=== PATIENT | male | born 1950 | race Caucasian/White ===

== ENCOUNTER 2023-04-30 16:59 | Emergency (ER) | payer OTHER ==
[~2023-04-30] VITALS: Ht 175.3 cm; Wt 97.1 kg
[2023-04-30 18:46] LABS: BASOPHILS % (AUTO) 0.1 % (0.0-5.0); EOSINOPHILS % (AUTO) 1.1 % (0.0-8.0); HEMATOCRIT 32.8 % (42-54); LYMPHOCYTES % (AUTO) 23.8 % (21.0-51.0); MEAN CORPUSCULAR HEMOGLOBIN 29.6 pg (27.0-33.0); MEAN CORPUSCULAR HGB CONC 33.5 g/dL (32.0-36.0); MEAN CORPUSCULAR VOLUME 88.4 fL (79-99); MONOCYTES % (AUTO) 7.2 % (3.0-13.0); NEUTROPHILS % (AUTO) 67.6 % (40.0-77.0); PLATELET COUNT (AUTO) 190 K/uL (130-400); RED BLOOD CELL COUNT(AUTO) 3.71 MIL/uL (4.50-6.20); RED CELL DISTRIBUTION WIDTH 14.2 % (11.0-15.5); WHITE BLOOD COUNT (AUTO) 9.4 K/uL (4.8-10.8)
[2023-04-30 18:59] LABS: INR 1.07 (0.85-1.15); PROTHROMBIN TIME 11.6 SEC (9.6-11.6)
[2023-04-30 19:00] LABS: CREATININE 1.2 mg/dL (0.5-1.5); POTASSIUM 4.6 mmol/L (3.5-5.1)
[2023-04-30 19:04] LABS: ALBUMIN 3.6 g/dL (3.5-5.0); MAGNESIUM 1.2 mg/dL (1.80-2.40); TOTAL PROTEIN, SERUM 7.2 g/dL (6.0-8.3)
[2023-04-30 19:10] LABS: B-TYPE NATRIURETIC PEPTIDE 90 pg/mL (0-100)
[2023-04-30] MEDS ORDERED: MAGNESIUM OXIDE 400 MG TABLET PO SCH (20:00)
[2023-04-30 20:16] VITALS: BP 133/60
== END 2023-04-30 21:55 | disposition home or self-care (01) ==
LOC: EDH 16:59
DX: E83.42 Hypomagnesemia (principal); I48.91 Unspecified atrial fibrillation; E11.9 Type 2 diabetes mellitus without complications; E78.00 Pure hypercholesterolemia, unspecified; I10 Essential (primary) hypertension
CPT/HCPCS: 36415; 71045; 80053; 83735; 83880; 84484; 85025; 85610; 93005

== ENCOUNTER 2023-06-22 08:29 | Emergency (ER) | payer OTHER, MEDICARE ==
[~2023-06-22] VITALS: Ht 175.3 cm; Wt 93.0 kg
[2023-06-22 09:26] LABS: BASOPHILS % (AUTO) 0.2 % (0.0-5.0); EOSINOPHILS % (AUTO) 0.5 % (0.0-8.0); HEMATOCRIT 32.8 % (42-54); LYMPHOCYTES % (AUTO) 6.6 % (21.0-51.0); MEAN CORPUSCULAR HEMOGLOBIN 33.1 pg (27.0-33.0); MEAN CORPUSCULAR HGB CONC 35.4 g/dL (32.0-36.0); MEAN CORPUSCULAR VOLUME 93.7 fL (79-99); MONOCYTES % (AUTO) 7.4 % (3.0-13.0); NEUTROPHILS % (AUTO) 84.6 % (40.0-77.0); PLATELET COUNT (AUTO) 223 K/uL (130-400); RED CELL DISTRIBUTION WIDTH 14.6 % (11.0-15.5); WHITE BLOOD COUNT (AUTO) 16.1 K/uL (4.8-10.8)
[2023-06-22 09:33] LABS: CREATININE 1.4 mg/dL (0.5-1.5); POTASSIUM 4.3 mmol/L (3.5-5.1)
[2023-06-22 09:37] LABS: ALBUMIN 3.1 g/dL (3.5-5.0); TOTAL PROTEIN, SERUM 7.9 g/dL (6.0-8.3)
[2023-06-22 10:39] LABS: APPEARANCE,URINE CLEAR (CLEAR); BILIRUBIN,URINE NEGATIVE (NEGATIVE); COLOR,URINE LIGHT-YELLOW (YELLOW); GLUCOSE, URINE (UA) NEGATIVE (NEGATIVE); KETONES,URINE NEGATIVE (NEGATIVE); LEUKOCYTE ESTERASE ,URINE 25 Leu/uL (NEGATIVE); NITRATE,URINE NEGATIVE (NEGATIVE); OCCULT BLOOD,URINE SMALL (NEGATIVE); PROTEIN,URINE 10 mg/dL (NEGATIVE); UROBILINOGEN,URINE 0.2 mg/dL (0.2-1.0)
[2023-06-22] MEDS ORDERED: ALBUTEROL 0.083% 2.5 MG/3 ML INH IH ONE (11:00)
[2023-06-22] MEDS ORDERED: GUAIFENESIN 600 MG TABLET.ER PO ONE (11:00)
[2023-06-22 11:13] LABS: MUCUS,URINE RARE LPF (None Seen); SQUAMOUS EPITHELIAL CELL,UR RARE /HPF (0-2)
[2023-06-22 12:20] VITALS: PULSE 77; RESP 18
[2023-06-22 12:31] VITALS: PULSE 79; RESP 18
[2023-06-22 12:40] VITALS: PULSE 75; RESP 18
[2023-06-22] MEDS ORDERED: GUAI600T50 PO (12:41)
[2023-06-22] MEDS ORDERED: AUD IH (12:41)
[2023-06-22] MEDS ORDERED: CEPH500B PO (12:41)
[2023-06-22 13:10] VITALS: BP 126/72; PULSE 72; RESP 18; O2SAT 98
[2023-06-26] MEDS ORDERED: XALA2.5OS OU (20:48)
[2023-06-26] MEDS ORDERED: PANT40TA54 PO (20:48)
[2023-06-26] MEDS ORDERED: NETA2.5D OD (20:48)
[2023-06-26] MEDS ORDERED: HYDR25TA PO (20:48)
[2023-06-26] MEDS ORDERED: FISH1CAP20 PO (20:48)
[2023-06-26] MEDS ORDERED: ALOG25TA2 PO (20:48)
[2023-06-26] MEDS ORDERED: ASPI-1197 PO (20:48)
[2023-06-26] MEDS ORDERED: FERS325 PO (20:48)
[2023-06-26] MEDS ORDERED: CYAN100099 PO (20:48)
[2023-06-26] MEDS ORDERED: LOSA50TA64 PO (20:48)
[2023-06-26] MEDS ORDERED: DORZ10DR10 OU (20:48)
[2023-06-26] MEDS ORDERED: ATOR40TA69 PO (20:48)
[2023-06-26] MEDS ORDERED: lidocaine 5% TP (20:48)
[2023-06-26] MEDS ORDERED: OXYB5TAB15 PO (20:48)
[2023-06-26] MEDS ORDERED: METF-446 PO (20:48)
[2023-06-26] MEDS ORDERED: diclofenac gel TP (20:48)
[2023-06-26] MEDS ORDERED: SOTA80TA PO (20:48)
== END 2023-06-22 13:24 | disposition home or self-care (01) ==
LOC: EDH 08:29
DX: J40 Bronchitis, not specified as acute or chronic (principal); N39.0 Urinary tract infection, site not specified; E11.9 Type 2 diabetes mellitus without complications; Z20.822 Contact with and (suspected) exposure to COVID-19
CPT/HCPCS: 99284; 71045; 87635; 80053; 85025; 87088; 87880; 87804 ×2; 81001; 36415; 94640 ×3; C9803

== ENCOUNTER 2023-06-24 10:17 | Emergency (ER) | payer MEDICARE, OTHER ==
[~2023-06-24] VITALS: Ht 175.3 cm; Wt 93.0 kg
[~2023-06-24 10:17] MED LIST: AUD IH; CEPH500B PO; GUAI600T50 PO
[2023-06-24 12:50] LABS: BASOPHILS # (AUTO) 0.02 K/uL (0.00-0.20); BASOPHILS % (AUTO) 0.2 % (0.0-5.0); EOSINOPHILS # (AUTO) 0.03 K/uL (0.00-0.70); EOSINOPHILS % (AUTO) 0.2 % (0.0-8.0); HEMATOCRIT 31.6 % (42-54); IMMATURE GRANULOCYTE ABSOLUTE 0.06 K/uL (0-1); LYMPHOCYTES # (AUTO) 1.4 K/uL (1.0-4.8); LYMPHOCYTES % (AUTO) 11.7 % (21.0-51.0); MEAN CORPUSCULAR HEMOGLOBIN 31.4 pg (27.0-33.0); MEAN CORPUSCULAR HGB CONC 35.4 g/dL (32.0-36.0); MEAN CORPUSCULAR VOLUME 88.5 fL (79-99); MONOCYTES % (AUTO) 8.4 % (3.0-13.0); NEUTROPHILS # (AUTO) 9.6 K/uL (1.8-7.7); PLATELET COUNT (AUTO) 250 K/uL (130-400); RED BLOOD CELL COUNT(AUTO) 3.57 MIL/uL (4.50-6.20); RED CELL DISTRIBUTION WIDTH 13.1 % (11.0-15.5); WHITE BLOOD COUNT (AUTO) 12.2 K/uL (4.8-10.8)
[2023-06-24 13:05] LABS: CREATININE 1.2 mg/dL (0.5-1.5); POTASSIUM 3.3 mmol/L (3.5-5.1)
[2023-06-24 13:10] LABS: ALBUMIN 2.9 g/dL (3.5-5.0); BILIRUBIN,TOTAL 0.6 mg/dL (0.2-1.0); TOTAL PROTEIN, SERUM 7.8 g/dL (6.0-8.3)
[2023-06-24 13:18] LABS: B-TYPE NATRIURETIC PEPTIDE 141 pg/mL (0-100)
[2023-06-24 15:03] VITALS: BP 121/65; PULSE 78; RESP 18; O2SAT 99
[2023-06-24] MEDS ORDERED: AZIT250T9 PO (15:11)
[2023-06-24] MEDS ORDERED: AMOX1TAB16 PO (15:11)
[2023-06-24] MEDS ORDERED: KCL 20 MEQ ERTAB PO ONE ×2 (15:22→15:30)
[2023-06-24] MEDS ORDERED: AZITHROMYCIN 250 MG TABLET PO ONE (15:30)
[2023-06-24] MEDS ORDERED: AMOX/CLAV 875/125MG TAB PO ONE (15:30)
== END 2023-06-24 15:32 | disposition home or self-care (01) ==
LOC: EDH 10:17
DX: J18.9 Pneumonia, unspecified organism (principal); E87.1 Hypo-osmolality and hyponatremia; E87.6 Hypokalemia; E11.9 Type 2 diabetes mellitus without complications; E78.00 Pure hypercholesterolemia, unspecified; Z90.49 Acquired absence of other specified parts of digestive tract
CPT/HCPCS: 36415; 71045; 80053; 83880; 85025

== ENCOUNTER 2023-06-25 17:06 | Inpatient (IN) | payer MEDICARE, OTHER ==
[~2023-06-25] VITALS: Ht 396.2 cm; Wt 90.4 kg
[~2023-06-25 17:06] MED LIST changes: +AMOX1TAB16 PO; +AZIT250T9 PO
[2023-06-25 17:59] LABS: BASOPHILS # (AUTO) 0.03 K/uL (0.00-0.20); BASOPHILS % (AUTO) 0.2 % (0.0-5.0); EOSINOPHILS # (AUTO) 0.22 K/uL (0.00-0.70); EOSINOPHILS % (AUTO) 1.7 % (0.0-8.0); HEMATOCRIT 31.7 % (42-54); IMMATURE GRANULOCYTE ABSOLUTE 0.06 K/uL (0-1); LYMPHOCYTES # (AUTO) 1.5 K/uL (1.0-4.8); LYMPHOCYTES % (AUTO) 11.6 % (21.0-51.0); MEAN CORPUSCULAR HEMOGLOBIN 30.6 pg (27.0-33.0); MEAN CORPUSCULAR HGB CONC 35.3 g/dL (32.0-36.0); MEAN CORPUSCULAR VOLUME 86.6 fL (79-99); MONOCYTES # (AUTO) 1.3 K/uL (0.1-1.0); MONOCYTES % (AUTO) 10.1 % (3.0-13.0); NEUTROPHILS # (AUTO) 9.8 K/uL (1.8-7.7); NEUTROPHILS % (AUTO) 75.9 % (40.0-77.0); PLATELET COUNT (AUTO) 289 K/uL (130-400); RED BLOOD CELL COUNT(AUTO) 3.66 MIL/uL (4.50-6.20); WHITE BLOOD COUNT (AUTO) 12.9 K/uL (4.8-10.8)
[2023-06-25 18:25] LABS: ALBUMIN 2.8 g/dL (3.5-5.0); BILIRUBIN,TOTAL 0.4 mg/dL (0.2-1.0); CREATININE 1.2 mg/dL (0.5-1.5); POTASSIUM 3.5 mmol/L (3.5-5.1); TOTAL PROTEIN, SERUM 7.9 g/dL (6.0-8.3)
[2023-06-25] MEDS ORDERED: CEFTRIAXONE 1G VIAL IVPB ONE (19:30)
[2023-06-25] MEDS ORDERED: AZITHROMYCIN 500MG+NS 250ML IVPB SCH (19:30)
[2023-06-25] MEDS ORDERED: ONDANSETRON 4MG INJ IV PRN (21:00)
[2023-06-25] MEDS ORDERED: ACETAMINOPHEN 325 MG TAB PO PRN ×2 (21:00)
[2023-06-25] MEDS: SOLU-MEDROL 40MG VIAL IVP SCH (21:23)
[2023-06-25] MEDS: FAMOTIDINE 20MG TAB PO SCH (21:23)
[2023-06-25] MEDS ORDERED: 0.9%NACL 50ML IV SCH (21:30)
[2023-06-25] MEDS: ZOSYN 3.375GM +NS 50ML IVPB SCH (22:06)
[2023-06-25 22:10] LABS: COVID19 (SARS ANTIGEN RAPID) PRESUMPTIVE NEGATIVE (NEGATIVE); INFLUENZA TYPE A Negative For Type A (NEGATIVE); INFLUENZA TYPE B Negative For Type B (NEGATIVE)
[2023-06-25 22:15] LABS: APPEARANCE,URINE CLEAR (CLEAR); BILIRUBIN,URINE NEGATIVE (NEGATIVE); COLOR,URINE LIGHT-YELLOW (YELLOW); GLUCOSE, URINE (UA) NEGATIVE (NEGATIVE); KETONES,URINE NEGATIVE (NEGATIVE); LEUKOCYTE ESTERASE ,URINE NEGATIVE Leu/uL (NEGATIVE); NITRATE,URINE NEGATIVE (NEGATIVE); PROTEIN,URINE 20 mg/dL (NEGATIVE)
[2023-06-25 22:16] LABS: ADD UA MICROSCOPIC YES; BACTERIA,URINE RARE /HPF (None Seen); MUCUS,URINE RARE LPF (None Seen); OTHER CASTS, URINE 3 /LPF (None Seen)
[2023-06-25] MEDS ORDERED: SODIUM CHLORIDE 3% FOR INHALATION 4 ML/AMP VIAL.NEB IH ONE (22:46)
[2023-06-25] MEDS ORDERED: IPRATROPIUM/ALBUTEROL SULFATE 3 ML SOLUTION IH ONE (22:46)
[2023-06-25 22:55] VITALS: PULSE 106; RESP 22
[2023-06-25] MEDS: IPRATROPIUM/ALBUTEROL SULFATE 3 ML SOLUTION IH SCH (23:15)
[2023-06-26] MEDS ORDERED: SODIUM CHLORIDE 3% FOR INHALATION 4 ML/AMP VIAL.NEB IH ONE ×2 (06:19→11:26)
[2023-06-26] MEDS: ZOSYN 3.375GM +NS 50ML IVPB SCH ×3 (06:26→21:20)
[2023-06-26 06:53] VITALS: PULSE 100; RESP 18
[2023-06-26] MEDS: IPRATROPIUM/ALBUTEROL SULFATE 3 ML SOLUTION IH SCH ×4 (06:55→23:12)
[2023-06-26 07:07] LABS: HEMATOCRIT 29.5 % (42-54); IMMATURE GRANULOCYTE ABSOLUTE 0.08 K/uL (0-1); LYMPHOCYTES # (AUTO) 0.8 K/uL (1.0-4.8); LYMPHOCYTES % (AUTO) 8.4 % (21.0-51.0); MEAN CORPUSCULAR HEMOGLOBIN 29.8 pg (27.0-33.0); MEAN CORPUSCULAR HGB CONC 34.9 g/dL (32.0-36.0); MEAN CORPUSCULAR VOLUME 85.3 fL (79-99); MONOCYTES # (AUTO) 0.2 K/uL (0.1-1.0); MONOCYTES % (AUTO) 2.5 % (3.0-13.0); NEUTROPHILS # (AUTO) 8.1 K/uL (1.8-7.7); NEUTROPHILS % (AUTO) 88.2 % (40.0-77.0); PLATELET COUNT (AUTO) 226 K/uL (130-400); RED BLOOD CELL COUNT(AUTO) 3.46 MIL/uL (4.50-6.20); RED CELL DISTRIBUTION WIDTH 12.8 % (11.0-15.5); WHITE BLOOD COUNT (AUTO) 9.2 K/uL (4.8-10.8)
[2023-06-26 07:25] LABS: ALBUMIN 2.5 g/dL (3.5-5.0); BILIRUBIN,TOTAL 0.4 mg/dL (0.2-1.0); CREATININE 1.1 mg/dL (0.5-1.5); POTASSIUM 3.8 mmol/L (3.5-5.1); TOTAL PROTEIN, SERUM 7.4 g/dL (6.0-8.3)
[2023-06-26] MEDS: SOLU-MEDROL 40MG VIAL IVP SCH ×2 (08:29→21:20)
[2023-06-26] MEDS: INSULIN HUMULIN R 100 UNIT/ML 3ML SQ SCH ×4 (08:30→21:21)
[2023-06-26] MEDS ORDERED: AZITHROMYCIN 500MG+NS 250ML IVPB SCH (10:30)
[2023-06-26 11:36] VITALS: PULSE 85; RESP 18
[2023-06-26 18:34] VITALS: PULSE 78; RESP 18
[2023-06-26 19:00] VITALS: BP 136/94; PULSE 114; RESP 20; O2SAT 94
[2023-06-26] MEDS ORDERED: ATOR40TA69 PO ×2 (20:48)
[2023-06-26] MEDS ORDERED: diclofenac gel TP ×2 (20:48)
[2023-06-26] MEDS ORDERED: DORZ10DR10 OU ×2 (20:48)
[2023-06-26] MEDS ORDERED: FISH1CAP20 PO ×2 (20:48)
[2023-06-26] MEDS ORDERED: PANT40TA54 PO ×2 (20:48)
[2023-06-26] MEDS ORDERED: FERS325 PO ×2 (20:48)
[2023-06-26] MEDS ORDERED: lidocaine 5% TP ×2 (20:48)
[2023-06-26] MEDS ORDERED: XALA2.5OS OU ×2 (20:48)
[2023-06-26] MEDS ORDERED: LOSA50TA64 PO ×2 (20:48)
[2023-06-26] MEDS ORDERED: ASPI-1197 PO ×2 (20:48)
[2023-06-26] MEDS ORDERED: ALOG25TA2 PO ×2 (20:48)
[2023-06-26] MEDS ORDERED: HYDR25TA PO ×2 (20:48)
[2023-06-26] MEDS ORDERED: NETA2.5D OD ×2 (20:48)
[2023-06-26] MEDS ORDERED: OXYB5TAB15 PO ×2 (20:48)
[2023-06-26] MEDS ORDERED: SOTA80TA PO ×2 (20:48)
[2023-06-26] MEDS ORDERED: CYAN100099 PO ×2 (20:48)
[2023-06-26] MEDS ORDERED: METF-446 PO ×2 (20:48)
[2023-06-26] MEDS: FAMOTIDINE 20MG TAB PO SCH (21:20)
[2023-06-26 23:16] VITALS: PULSE 109; RESP 18
[2023-06-26 23:49] VITALS: BP 134/71; PULSE 101; RESP 18
[2023-06-27] VITALS (10 sets, daily range): BP systolic 118–162; BP diastolic 57–83; PULSE 77–99; RESP 16–20; O2SAT 95
[2023-06-27] MEDS: INSULIN HUMULIN R 100 UNIT/ML 3ML SQ SCH ×4 (00:37→21:37)
[2023-06-27] MEDS: ZOSYN 3.375GM +NS 50ML IVPB SCH ×3 (04:24→21:35)
[2023-06-27 04:49] LABS: HEMATOCRIT 31.1 % (42-54); MEAN CORPUSCULAR HEMOGLOBIN 31.4 pg (27.0-33.0); MEAN CORPUSCULAR HGB CONC 35.7 g/dL (32.0-36.0); MEAN CORPUSCULAR VOLUME 87.9 fL (79-99); RED BLOOD CELL COUNT(AUTO) 3.54 MIL/uL (4.50-6.20); RED CELL DISTRIBUTION WIDTH 12.7 % (11.0-15.5); WHITE BLOOD COUNT (AUTO) 14.1 K/uL (4.8-10.8)
[2023-06-27 04:57] LABS: INR 0.96 (0.85-1.15); PROTHROMBIN TIME 11.2 SEC (9.6-11.6)
[2023-06-27 04:59] LABS: PARTIAL THROMBOPLASTIN TIME 28.2 SEC (26.3-35.5)
[2023-06-27 05:09] LABS: ALBUMIN 2.5 g/dL (3.5-5.0); BILIRUBIN,TOTAL 0.3 mg/dL (0.2-1.0); CREATININE 1.1 mg/dL (0.5-1.5); MAGNESIUM 1.4 mg/dL (1.80-2.40); POTASSIUM 3.5 mmol/L (3.5-5.1); TOTAL PROTEIN, SERUM 7.4 g/dL (6.0-8.3)
[2023-06-27] MEDS ORDERED: POTASSIUM CHLORIDE 20MEQ/100ML 100 ML IV PRN (06:30)
[2023-06-27] MEDS ORDERED: POTASSIUM CHLORIDE 10% ELIXIR 20 MEQ/15 ML UDCUP PO PRN (06:30)
[2023-06-27] MEDS ORDERED: KCL 20 MEQ ERTAB PO PRN (06:30)
[2023-06-27] MEDS: LACTULOSE 20 GM/30 ML UDCUP PO PRN (06:39)
[2023-06-27] MEDS: MAGNESIUM 2GM PREMIX 50ML 50 ML IV PRN (06:40)
[2023-06-27] MEDS: IPRATROPIUM/ALBUTEROL SULFATE 3 ML SOLUTION IH SCH ×5 (06:58→19:11)
[2023-06-27] MEDS: SOLU-MEDROL 40MG VIAL IVP SCH ×2 (07:56→21:36)
[2023-06-27] MEDS ORDERED: SODIUM CHLORIDE 3% FOR INHALATION 4 ML/AMP VIAL.NEB IH ONE (10:03)
[2023-06-27 10:34] LABS: ABG BASE EXCESS 1.6 mmol/L (-2.0-3.0); ABG OXYGEN SATURATION 94.3 % (95.0-99.0); ABG PCO2 36 mmHg (35-48); ABG PH 7.464 (7.35-7.450); PO2, ARTERIAL BG 66.3 mmHg (83.0-108.0)
[2023-06-27] MEDS: SOTALOL HCL 80 MG TABLET PO SCH (23:29)
[2023-06-27] MEDS: GUAIFENESIN-DM 200/20 MG 10 ML PO PRN (23:29)
[2023-06-27] MEDS ORDERED: HYDRALAZINE 20MG/ML VIAL IV PRN (23:30)
[2023-06-28] VITALS (20 sets, daily range): BP systolic 95–164; BP diastolic 50–75; PULSE 56–95; RESP 16–20
[2023-06-28] MEDS: IPRATROPIUM/ALBUTEROL SULFATE 3 ML SOLUTION IH SCH ×10 (00:37→23:18)
[2023-06-28 04:38] LABS: ALBUMIN 2.5 g/dL (3.5-5.0); BILIRUBIN,TOTAL 0.3 mg/dL (0.2-1.0); CREATININE 1.2 mg/dL (0.5-1.5); TOTAL PROTEIN, SERUM 7.2 g/dL (6.0-8.3)
[2023-06-28] MEDS: ZOSYN 3.375GM +NS 50ML IVPB SCH ×3 (05:51→22:04)
[2023-06-28] MEDS: INSULIN HUMULIN R 100 UNIT/ML 3ML SQ SCH ×4 (05:53→22:03)
[2023-06-28] MEDS: PANTOPRAZOLE 40 MG TAB DR PO SCH (07:30)
[2023-06-28] MEDS: ATORVASTATIN 40 MG TABLET PO SCH (07:45)
[2023-06-28] MEDS: LOSARTAN 50 MG TABLET PO SCH (07:45)
[2023-06-28] MEDS: FISH OIL 1000 MG/CAP PO SCH (07:45)
[2023-06-28] MEDS: ASPIRIN 81MG CHEW TAB PO SCH (07:45)
[2023-06-28] MEDS: SOTALOL HCL 80 MG TABLET PO SCH ×2 (07:45→22:03)
[2023-06-28] MEDS: HYDROCHLOROTHIAZIDE 25 MG TABLET PO SCH (07:45)
[2023-06-28] MEDS: OXYBUTYNIN CHLORIDE 5 MG TABLET PO SCH (07:46)
[2023-06-28] MEDS: Alogliptin 25 MG PO SCH (07:46)
[2023-06-28] MEDS: DICLOFENAC TP SCH ×3 (07:53→20:22)
[2023-06-28] MEDS: FERROUS SULFATE 325 MG TABLET.DR PO SCH (07:53)
[2023-06-28] MEDS: LIDOCAINE 5% TOPICAL PATCH TP SCH (09:00)
[2023-06-28] MEDS: DORZOLAMIDE HCL/TIMOLOL MALEAT DROPS 10 ML BOTTLE OU SCH ×2 (09:00→20:22)
[2023-06-28] MEDS ORDERED: SOTALOL HCL 80 MG TABLET PO SCH (09:00)
[2023-06-28] MEDS: SOLU-MEDROL 40MG VIAL IVP SCH (09:34)
[2023-06-28] MEDS ORDERED: PROPOFOL 10 MG/ML 20ML VIAL IV ONE (13:44)
[2023-06-28] MEDS ORDERED: LIDOCAINE HCL 400MG/20ML VIAL ONE (13:45)
[2023-06-28] MEDS: NETARSUDIL MESYLATE OD SCH (20:23)
[2023-06-28] MEDS: LATANOPROST 2.5 ML DROPS OU SCH (22:04)
[2023-06-29] VITALS (11 sets, daily range): BP systolic 118–163; BP diastolic 56–86; PULSE 54–96; RESP 16–20; O2SAT 95–96
[2023-06-29] MEDS: GUAIFENESIN-DM 200/20 MG 10 ML PO PRN (02:30)
[2023-06-29 04:14] LABS: BASOPHILS # (AUTO) 0.01 K/uL (0.00-0.20); BASOPHILS % (AUTO) 0.1 % (0.0-5.0); HEMATOCRIT 33.6 % (42-54); IMMATURE GRANULOCYTE ABSOLUTE 0.18 K/uL (0-1); LYMPHOCYTES # (AUTO) 1.9 K/uL (1.0-4.8); LYMPHOCYTES % (AUTO) 19.4 % (21.0-51.0); MEAN CORPUSCULAR HEMOGLOBIN 30.3 pg (27.0-33.0); MEAN CORPUSCULAR HGB CONC 33.9 g/dL (32.0-36.0); MEAN CORPUSCULAR VOLUME 89.4 fL (79-99); MONOCYTES % (AUTO) 9.7 % (3.0-13.0); NEUTROPHILS # (AUTO) 6.7 K/uL (1.8-7.7); PLATELET COUNT (AUTO) 312 K/uL (130-400); RED BLOOD CELL COUNT(AUTO) 3.76 MIL/uL (4.50-6.20); RED CELL DISTRIBUTION WIDTH 13.3 % (11.0-15.5); WHITE BLOOD COUNT (AUTO) 9.9 K/uL (4.8-10.8)
[2023-06-29 04:52] LABS: ALBUMIN 2.6 g/dL (3.5-5.0); BILIRUBIN,TOTAL 0.3 mg/dL (0.2-1.0); CREATININE 1.2 mg/dL (0.5-1.5); MAGNESIUM 1.6 mg/dL (1.80-2.40); POTASSIUM 3.9 mmol/L (3.5-5.1); TOTAL PROTEIN, SERUM 7.4 g/dL (6.0-8.3)
[2023-06-29] MEDS: MAGNESIUM 2GM PREMIX 50ML 50 ML IV PRN (05:13)
[2023-06-29] MEDS: IPRATROPIUM/ALBUTEROL SULFATE 3 ML SOLUTION IH SCH ×8 (06:00→23:02)
[2023-06-29] MEDS: INSULIN HUMULIN R 100 UNIT/ML 3ML SQ SCH ×5 (06:00→20:46)
[2023-06-29] MEDS: ZOSYN 3.375GM +NS 50ML IVPB SCH ×3 (06:29→20:40)
[2023-06-29] MEDS: PANTOPRAZOLE 40 MG TAB DR PO SCH ×2 (07:30→08:36)
[2023-06-29] MEDS: SOTALOL HCL 80 MG TABLET PO SCH ×2 (08:36→20:40)
[2023-06-29] MEDS: SOLU-MEDROL 40MG VIAL IVP SCH (08:37)
[2023-06-29] MEDS: DICLOFENAC TP SCH ×3 (08:37→20:44)
[2023-06-29] MEDS: Alogliptin 25 MG PO SCH (08:37)
[2023-06-29] MEDS: HYDROCHLOROTHIAZIDE 25 MG TABLET PO SCH (08:37)
[2023-06-29] MEDS: DORZOLAMIDE HCL/TIMOLOL MALEAT DROPS 10 ML BOTTLE OU SCH ×2 (08:37→20:42)
[2023-06-29] MEDS: LOSARTAN 50 MG TABLET PO SCH (08:37)
[2023-06-29] MEDS: ATORVASTATIN 40 MG TABLET PO SCH (08:43)
[2023-06-29] MEDS: FISH OIL 1000 MG/CAP PO SCH (08:43)
[2023-06-29] MEDS: ASPIRIN 81MG CHEW TAB PO SCH (08:44)
[2023-06-29] MEDS: LIDOCAINE 5% TOPICAL PATCH TP SCH (08:44)
[2023-06-29] MEDS: FERROUS SULFATE 325 MG TABLET.DR PO SCH (08:44)
[2023-06-29] MEDS: OXYBUTYNIN CHLORIDE 5 MG TABLET PO SCH (08:44)
[2023-06-29] MEDS ORDERED: CYANOCOBALAMIN (VITAMIN B-12) 1,000 MCG TABLET PO SCH (09:00)
[2023-06-29] MEDS: LACTULOSE 20 GM/30 ML UDCUP PO PRN (13:55)
[2023-06-29] MEDS: GUAIFENESIN-CODEINE 5 ML SYRUP PO PRN (17:15)
[2023-06-29] MEDS: NETARSUDIL MESYLATE OD SCH (20:43)
[2023-06-29] MEDS: LATANOPROST 2.5 ML DROPS OU SCH (20:43)
[2023-06-30] MEDS: GUAIFENESIN-CODEINE 5 ML SYRUP PO PRN (00:03)
[2023-06-30 06:35] VITALS: PULSE 99; RESP 18
[2023-06-30] MEDS: PANTOPRAZOLE 40 MG TAB DR PO SCH ×2 (07:30→10:25)
[2023-06-30] MEDS: DICLOFENAC TP SCH (09:00)
[2023-06-30] MEDS: Alogliptin 25 MG PO SCH (09:00)
[2023-06-30] MEDS: LIDOCAINE 5% TOPICAL PATCH TP SCH (09:00)
[2023-06-30 09:10] VITALS: PULSE 95; PULSE 99; RESP 18; RESP 22; O2SAT 96; O2SAT 97
[2023-06-30] MEDS: SOLU-MEDROL 40MG VIAL IVP SCH (10:23)
[2023-06-30] MEDS: FISH OIL 1000 MG/CAP PO SCH (10:24)
[2023-06-30] MEDS: FERROUS SULFATE 325 MG TABLET.DR PO SCH (10:24)
[2023-06-30] MEDS: SOTALOL HCL 80 MG TABLET PO SCH (10:24)
[2023-06-30] MEDS: LOSARTAN 50 MG TABLET PO SCH (10:24)
[2023-06-30] MEDS: ASPIRIN 81MG CHEW TAB PO SCH (10:24)
[2023-06-30] MEDS: DORZOLAMIDE HCL/TIMOLOL MALEAT DROPS 10 ML BOTTLE OU SCH (10:24)
[2023-06-30] MEDS: HYDROCHLOROTHIAZIDE 25 MG TABLET PO SCH (10:25)
[2023-06-30] MEDS: OXYBUTYNIN CHLORIDE 5 MG TABLET PO SCH (10:25)
[2023-06-30] MEDS: ATORVASTATIN 40 MG TABLET PO SCH (10:25)
[2023-06-30 10:28] LABS: ALBUMIN 2.5 g/dL (3.5-5.0); BILIRUBIN,TOTAL 0.3 mg/dL (0.2-1.0); CREATININE 1.3 mg/dL (0.5-1.5); MAGNESIUM 1.6 mg/dL (1.80-2.40); POTASSIUM 3.6 mmol/L (3.5-5.1); TOTAL PROTEIN, SERUM 6.9 g/dL (6.0-8.3)
[2023-06-30] MEDS: IPRATROPIUM/ALBUTEROL SULFATE 3 ML SOLUTION IH SCH ×2 (11:17→11:18)
[2023-06-30] MEDS ORDERED: AMOX1TAB16 PO ×2 (11:24)
[2023-06-30] MEDS ORDERED: METH4TAB3 PO ×2 (11:27)
[2023-06-30] MEDS: INSULIN HUMULIN R 100 UNIT/ML 3ML SQ SCH (11:45)
[2023-06-30 11:50] VITALS: PULSE 89; RESP 18
[2023-06-30 14:38] LABS: BASOPHILS # (AUTO) 0.04 K/uL (0.00-0.20); BASOPHILS % (AUTO) 0.6 % (0.0-5.0); EOSINOPHILS # (AUTO) 0.14 K/uL (0.00-0.70); HEMATOCRIT 59.6 % (42-54); IMMATURE GRANULOCYTE ABSOLUTE 0.14 K/uL (0-1); LYMPHOCYTES # (AUTO) 1.6 K/uL (1.0-4.8); LYMPHOCYTES % (AUTO) 22.1 % (21.0-51.0); MEAN CORPUSCULAR HEMOGLOBIN 29.9 pg (27.0-33.0); MEAN CORPUSCULAR HGB CONC 33.7 g/dL (32.0-36.0); MEAN CORPUSCULAR VOLUME 88.7 fL (79-99); MONOCYTES # (AUTO) 0.4 K/uL (0.1-1.0); MONOCYTES % (AUTO) 5.4 % (3.0-13.0); NEUTROPHILS # (AUTO) 4.9 K/uL (1.8-7.7); NEUTROPHILS % (AUTO) 67.9 % (40.0-77.0); PLATELET COUNT (AUTO) 119 K/uL (130-400); RED BLOOD CELL COUNT(AUTO) 6.72 MIL/uL (4.50-6.20); RED CELL DISTRIBUTION WIDTH 14.6 % (11.0-15.5); WHITE BLOOD COUNT (AUTO) 7.2 K/uL (4.8-10.8)
== END 2023-06-30 13:00 | disposition home or self-care (01) | DRG 871 ==
LOC: EDH 17:06 → EDHIP 20:57 → 4BH 06-26 19:39
PROVIDERS: ADMIT Hospitalist; ATTEND Hospitalist
PROC: 0DB58ZX Excision of Esophagus, Via Natural or Artificial Opening Endoscopic, Diagnostic (ICD-10-PCS; principal; 2023-06-28)
PROC: 0DB98ZX Excision of Duodenum, Via Natural or Artificial Opening Endoscopic, Diagnostic (ICD-10-PCS; 2023-06-28)
PROC: 0DB68ZX Excision of Stomach, Via Natural or Artificial Opening Endoscopic, Diagnostic (ICD-10-PCS; 2023-06-28)
DX: A41.9 Sepsis, unspecified organism (principal); E43 Unspecified severe protein-calorie malnutrition; J69.0 Pneumonitis due to inhalation of food and vomit; J44.0 Chronic obstructive pulmonary disease with (acute) lower respiratory infection; E87.1 Hypo-osmolality and hyponatremia; E87.20 Acidosis, unspecified; Z68.1 Body mass index [BMI] 19.9 or less, adult; I10 Essential (primary) hypertension; E11.9 Type 2 diabetes mellitus without complications; K44.9 Diaphragmatic hernia without obstruction or gangrene; E78.00 Pure hypercholesterolemia, unspecified; Z93.3 Colostomy status; K29.00 Acute gastritis without bleeding; Z20.822 Contact with and (suspected) exposure to COVID-19; F17.210 Nicotine dependence, cigarettes, uncomplicated; G47.33 Obstructive sleep apnea (adult) (pediatric); J44.9 Chronic obstructive pulmonary disease, unspecified; K21.00 Gastro-esophageal reflux disease with esophagitis, without bleeding; Z82.49 Family history of ischemic heart disease and other diseases of the circulatory system; Z83.3 Family history of diabetes mellitus
CPT/HCPCS: 36415; 36600; 43239; 43248; 70490; 71045; 71250; 74230; 80053; 81001; 82803; 82948; 83605; 83735; 84145; 84484; 85025; 85027; 85610; 85730; 86677; 86738; 87040; 87071; 87205; 87426; 87449; 87804; 92526; 92610; 92611; 93005; 93306; 94640; 94664; 94667; 94668; 94760; A4606; G0378; J0456; J1815; J2543; J2704; J2920; J3475; J3490; A4215; A4216; A4222; A4223; A4620; A4657; A7002

== ENCOUNTER → 2024-06-11 | Outpatient (CLI) | payer OTHER ==
[~2024-06-11] MED LIST changes: +ALOG25TA2 PO; -AMOX1TAB16 PO; +ASPI-1197 PO; +ATOR40TA69 PO; -AUD IH; -AZIT250T9 PO; -CEPH500B PO; +CYAN100099 PO; +DORZ10DR10 OU; +FERS325 PO; +FISH1CAP20 PO; -GUAI600T50 PO; +HYDR25TA PO; +LOSA50TA64 PO; +METF-446 PO; +NETA2.5D OD; +OXYB5TAB20 PO; +PANT40TA54 PO; +SOTA80TA PO; +XALA2.5OS OU; +diclofenac gel TP; +lidocaine 5% TP
== END | disposition home or self-care (01) ==
LOC: RAH 15:33
PROVIDERS: ATTEND Internal Medicine Cardiovascular Disease
DX: Z13.6 Encounter for screening for cardiovascular disorders (principal); I48.0 Paroxysmal atrial fibrillation
CPT/HCPCS: 75571

== ENCOUNTER → 2024-07-23 | Outpatient (CLI) | payer OTHER | END | disposition home or self-care (01) | LOC: SHCH 09:24 | PROVIDERS: ATTEND Internal Medicine | DX: I35.0 Nonrheumatic aortic (valve) stenosis (principal) | CPT/HCPCS: 93306 ==

== ENCOUNTER 2024-08-20 05:48 | Day surgery (SDC) | payer OTHER ==
[2024-08-18 12:30] VITALS: BP 139/60; PULSE 65; RESP 18; TEMP 97.2
[2024-08-18 12:35] LABS: BASOPHILS # (AUTO) 0.02 K/uL (0.00-0.20); BASOPHILS % (AUTO) 0.3 % (0.0-5.0); EOSINOPHILS # (AUTO) 0.11 K/uL (0.00-0.70); EOSINOPHILS % (AUTO) 1.6 % (0.0-8.0); HEMATOCRIT 34.2 % (42-54); IMMATURE GRANULOCYTE ABSOLUTE 0.02 K/uL (0-1); LYMPHOCYTES # (AUTO) 1.5 K/uL (1.0-4.8); LYMPHOCYTES % (AUTO) 22.3 % (21.0-51.0); MEAN CORPUSCULAR HEMOGLOBIN 30.5 pg (27.0-33.0); MEAN CORPUSCULAR VOLUME 92.2 fL (79-99); MONOCYTES # (AUTO) 0.6 K/uL (0.1-1.0); MONOCYTES % (AUTO) 9.3 % (3.0-13.0); NEUTROPHILS # (AUTO) 4.5 K/uL (1.8-7.7); NEUTROPHILS % (AUTO) 66.2 % (40.0-77.0); PLATELET COUNT (AUTO) 186 K/uL (130-400); RED BLOOD CELL COUNT(AUTO) 3.71 MIL/uL (4.50-6.20); RED CELL DISTRIBUTION WIDTH 14.3 % (11.0-15.5); WHITE BLOOD COUNT (AUTO) 6.7 K/uL (4.8-10.8)
[2024-08-18 12:56] LABS: B-TYPE NATRIURETIC PEPTIDE 81 pg/mL (0-100)
[2024-08-18 13:02] LABS: CREATININE 1.4 mg/dL (0.5-1.3); POTASSIUM 4.4 mmol/L (3.5-5.1)
[2024-08-18 14:04] LABS: PARTIAL THROMBOPLASTIN TIME 31.7 SEC (26.3-35.5)
[2024-08-18 14:17] LABS: INR 1.07 (0.85-1.15); PROTHROMBIN TIME 11.5 SEC (9.6-11.6)
[2024-08-20] VITALS (7 sets, daily range): BP systolic 102–136; BP diastolic 44–70; PULSE 48–76; RESP 11–18; TEMP 98.3–98.4
[~2024-08-20] VITALS: Ht 175.3 cm; Wt 95.8 kg
[~2024-08-20 05:48] MED LIST changes: -ALOG25TA2 PO; +APIX5TAB PO; -ASPI-1197 PO; +CARB1DRO4 OU; +DRON400T7 PO; +EMPA25TA PO; -FERS325 PO; -FISH1CAP20 PO; -SOTA80TA PO; +VITA1CAP85 PO; -diclofenac gel TP; -lidocaine 5% TP
[2024-08-20] MEDS: 0.9%NACL 1000ML 1,000 ML IV ONE (06:36)
[2024-08-20] MEDS ORDERED: AEC81 PO (06:43)
[2024-08-20] MEDS ORDERED: LIDOCAINE HCL 400MG/20ML VIAL ONE (07:11)
[2024-08-20] MEDS ORDERED: IOHEXOL 350 MG/ML 100ML INFUS..BTL IV ONE (07:12)
[2024-08-20] MEDS ORDERED: HEParin 10,000 UNIT/10ML (1,000 UNIT/ML) VIAL ONE (07:12)
[2024-08-20] MEDS ORDERED: HEParin-NS 1,000 UNIT/500 ML 1,000 ML IV ONE (07:12)
[2024-08-20] MEDS ORDERED: VERAPAMIL HCL 2.5 MG/ML VIAL ONE (07:12)
[2024-08-20] MEDS ORDERED: NITROGLYCERIN 50MG VIAL ONE (07:13)
[2024-08-20] MEDS ORDERED: FENTanyl CITRate PF 50 MCG/1 ML 2ML VIAL ONE (07:28)
[2024-08-20] MEDS ORDERED: MIDAZOLAM HCL 1 MG/ML 2ML VIAL ONE (07:28)
[2024-08-20] MEDS ORDERED: IOHEXOL-350 50ML VIAL IV ONE (08:26)
[2024-08-20] MEDS: 0.9%NACL 1000ML 1,000 ML IV SCH (09:00)
== END 2024-08-20 11:10 | disposition home or self-care (01) ==
LOC: DAH 05:48
PROVIDERS: ATTEND Internal Medicine
DX: I35.0 Nonrheumatic aortic (valve) stenosis (principal); I25.118 Atherosclerotic heart disease of native coronary artery with other forms of angina pectoris; R93.1 Abnormal findings on diagnostic imaging of heart and coronary circulation; Z91.048 Other nonmedicinal substance allergy status; I48.0 Paroxysmal atrial fibrillation; G47.33 Obstructive sleep apnea (adult) (pediatric); I12.9 Hypertensive chronic kidney disease with stage 1 through stage 4 chronic kidney disease, or unspecified chronic kidney disease; E11.22 Type 2 diabetes mellitus with diabetic chronic kidney disease; N18.9 Chronic kidney disease, unspecified; E78.00 Pure hypercholesterolemia, unspecified; Z99.89 Dependence on other enabling machines and devices; Z79.84 Long term (current) use of oral hypoglycemic drugs; Z79.82 Long term (current) use of aspirin; Z96.643 Presence of artificial hip joint, bilateral; Z90.49 Acquired absence of other specified parts of digestive tract; Z96.652 Presence of left artificial knee joint; Z98.49 Cataract extraction status, unspecified eye; Z79.01 Long term (current) use of anticoagulants; Z79.899 Other long term (current) drug therapy
CPT/HCPCS: 80048; 83880; 85025; 85610; 85730; 36415; 71045; 93005; 93460; 82948 ×2; C1769; C1894 ×4; A4649; C1760; J3010; J3490 ×3; J7030; J1644 ×2; J2250; Q9967 ×2; A4215; A4222; A6260; A4663; A4216; A6206; A4606; Q9965 ×2; A4223 ×3; A4221; 96360; 96361; 99156; 99157

== ENCOUNTER → 2024-08-25 | Outpatient (CLI) | payer OTHER ==
[~2024-08-25] MED LIST changes: +AEC81 PO
[2024-08-25 16:46] LABS: CREATININE 1.7 mg/dL (0.5-1.3); POTASSIUM 4.6 mmol/L (3.5-5.1)
== END | disposition home or self-care (01) ==
LOC: LAB 14:44
PROVIDERS: ATTEND Internal Medicine
DX: I10 Essential (primary) hypertension (principal)
CPT/HCPCS: 36415; 80048

== ENCOUNTER → 2024-09-03 | Outpatient (CLI) | payer OTHER ==
[~2024-09-03] MED LIST changes: +IOHEXOL 350 MG/ML 100ML INFUS..BTL IV ONE
== END | disposition home or self-care (01) ==
LOC: RAH 09:40
PROVIDERS: ATTEND Internal Medicine
DX: J84.10 Pulmonary fibrosis, unspecified (principal); I35.0 Nonrheumatic aortic (valve) stenosis; I25.10 Atherosclerotic heart disease of native coronary artery without angina pectoris; M47.815 Spondylosis without myelopathy or radiculopathy, thoracolumbar region; I70.0 Atherosclerosis of aorta
CPT/HCPCS: 74174; 75574; Q9967

== ENCOUNTER → 2024-12-30 | Outpatient (CLI) | payer OTHER ==
[~2024-12-30] MED LIST changes: -IOHEXOL 350 MG/ML 100ML INFUS..BTL IV ONE
--- NOTE | 2024-12-31 09:49 | HMCSR ---
APPROVED REPORT EXAM: Two-dimensional and M-mode echocardiogram with Doppler and color Doppler. INDICATION ICD: Z95.2 Presence of prosthetic heart valve 2D Dimensions RVDd4.2 cmLVEF(%)50.9 (>50%)LVED Vol(simp.)167.5 mL IVSd0.8 (0.7-1.1cm)FS(%)26 %LVES Vol(simp.)70.0 mL LVDd5.5 (3.8-5.6cm)LA (2D)4.3 (1.6-4.0cm)LVEF(%, simp.)58 % PWd1.1 (0.7-1.1cm)Ao Root(2D)3.4 (2.0-3.7cm)LA ESV INDEX (4CH)38.60 mL/m2 IVSs1.5 cmLVOT diam2.1 (1.8-2.4cm)LA ESV INDEX (2CH)30.50 mL/m2 LVDs4.2 (2.5-4.0cm)IVC diam2.5 cmLA ESV INDEX (BP)34.55 mL/m2 PWs1.5 cm M-Mode Dimensions EPSS1.5 cm LA (MM)5.2 (1.6-4.0cm) Ao Root(MM)2.5 (2.0-3.7cm) Aortic Valve AoV VTI0.4 mAo Mean GR8.0 mmHgLVOT VTI0.21 m ARNALDO (VMAX)1.8 cm2AVA (VTI) 1.8 cm2 Mitral Valve MV E Vmax96.3 cm/sDECEL Oqnp036 ms MV A Vmax92.8 cm/sP 1/2 T112 ms E/A ratio1.0MVA (PHT)2.0 cm2 TDI E/E' Brrtgh63.9E/E' Zzrbruv78.8 Medial E' Peak V4.40 cm/sLateral E' Peak V7.50 cm/s Pulmonary Valve PV VTI0.18 mPV Mean GR2 mmHg Tricuspid Valve RAP (EST) 15 bnUmOQFQ12.0 mmHg Left Ventricle The left ventricle is normal size. There is normal LV segmental wall motion. There is normal left fely tricular wall thickness. The LVEF is > 55%. No left ventricle thrombus noted on this study. Indetermi pascale diastolic dysfunction. Right Ventricle The right ventricle is normal size. The right ventricular systolic function is normal. Atria The left atrium is borderline dilated. The right atrium is mildly dilated. Aortic Valve TAVR present. No perivalvular/paralvalvular leak noted. Normal prosthetic valve gradients. No aortic regurgitation is present. There is no aortic valvular stenosis. Mitral Valve The mitral valve is normal in structure. There is no mitral valve regurgitation noted. There is no mi tral valve stenosis. Tricuspid Valve The tricuspid valve is normal in structure. There is no tricuspid valve regurgitation noted. Pulmonic Valve The pulmonary valve is normal in structure. There is no pulmonic valvular regurgitation. Great Vessels The aortic root is normal in size. IVC is dilated and collapses <50% with inspiration. Pericardium There is no pericardial effusion. Other Information Quality : Technically difficult due to body habitus Conclusion The left ventricle is normal size. There is normal left ventricular wall thickness. The LVEF is > 55%. The right ventricle is normal size. The left atrium is borderline dilated. TAVR present. No perivalvular/paralvalvular leak noted. Normal prosthetic valve gradients. No aortic regurgitation is present. The mitral valve is normal in structure. There is no mitral valve regurgitation noted. There is no mitral valve stenosis. There is no tricuspid valve regurgitation noted. There is no pulmonic valvular regurgitation. The aortic root is normal in size. IVC is dilated and collapses <50% with inspiration. There is no pericardial effusion.
== END | disposition home or self-care (01) ==
LOC: RAH 12:33
PROVIDERS: ATTEND Internal Medicine Cardiovascular Disease
DX: I11.9 Hypertensive heart disease without heart failure (principal); E78.5 Hyperlipidemia, unspecified; I35.0 Nonrheumatic aortic (valve) stenosis; I48.91 Unspecified atrial fibrillation; D68.69 Other thrombophilia; Z79.01 Long term (current) use of anticoagulants; Z95.2 Presence of prosthetic heart valve
CPT/HCPCS: 93306